=== PATIENT | female | born 1985 | race Caucasian/White ===

== ENCOUNTER 2016-11-15 23:06 | Emergency (ER) | payer OTHER ==
[2016-11-15] MEDS ORDERED: NS 0.9% 1000 ML* 2,000 ML IV ONE (23:39)
[2016-11-15] MEDS ORDERED: Morphine INJ* 4 MG/ML 1 ML CARPUJECT IV ONE (23:42)
[2016-11-15] MEDS ORDERED: Ondansetron INJ* 2 MG/ML VIAL IV ONE (23:42)
[2016-11-15] MEDS ORDERED: Pantoprazole IV* 40 MG IV ONE (23:43)
[2016-11-16 00:06] LABS: Hematocrit 47 % (35-47); Hemoglobin 16.1 g/dl (12.0-16.0); Mean Corpuscular HGB Conc 34 g/dl (31-36); Mean Corpuscular Hemoglobin 32 pg (27-31); Mean Corpuscular Volume 92 fL (80-97); Mean Platelet Volume 10 um3 (7.4-10.4); Red Blood Count 5.06 10^6/ul (4.0-5.4); Red Cell Distribution Width 12 % (10.5-15); White Blood Count 12.9 10^3/ul (3.5-10.8)
[2016-11-16 00:24] LABS: ALT 17 U/L (7-52); AST 19 U/L (13-39); Albumin 3.8 g/dL (3.2-5.2); Alkaline Phosphatase 72 U/L (34-104); Amylase 40 U/L (29-103); Anion Gap 9 mmol/L (2-11); BUN/Creatinine Ratio 34.5 (8-20); Blood Urea Nitrogen 20 mg/dL (6-24); C Reactive Protein 7.67 mg/L (< 5.00); CO2 Carbon Dioxide 27 mmol/L (22-32); Calcium 8.6 mg/dL (8.6-10.3); Chloride 101 mmol/L (101-111); EGFR Non-African American 119.7 (>60); Globulin 3.6 g/dL (2-4); Glucose 122 mg/dL (70-100); Lipase 19 U/L (11.0-82.0); Potassium 3.2 mmol/L (3.5-5.0); Sodium 137 mmol/L (133-145); Total Protein 7.4 g/dL (6.4-8.9)
[2016-11-16 02:18] VITALS: BP 118/73
--- NOTE | 2016-11-16 05:06 | ED ---
antony Mihcaels Timothy, scribed for Ramin Burrows MD on 11/15/16 at 2338 . GI/ HPI - HPI Summary HPI Summary: Angelita Singh is a 31 yo female presenting to [facility] with vomiting multiple times and cramping epigastric abd pain since this afternoon. She states she is thirsty , but cannot tolerate PO fluids. She states she feels numb, and the last time she felt like this she passed out. She also has mild sore throat. She denies fever, chills, gas or abd swelling. she is c/o left ear pain S/P vomiting as well. She states she has not eaten anything today. She states her daughters had abd pain and vomiting a week or so ago. she attempted to self medicated with tylenol, but was unable to tolerate PO intake. Her MHx includes HTN, asthma, preeclampsia, MRSA, and tobacco use. She is on lisinopril for her HTN. - History of Current Complaint Time Seen by Provider: 11/15/16 23:23 Stated Complaint: VOMITING, Hx Obtained From: Patient Timing: Constant Severity: Moderate Current Severity: Moderate Location of Pain: RUQ, Epigastric Pain Characteristics: Cramping Associated Signs and Symptoms: Positive: Nausea, Vomiting, Abdominal Pain Additional Signs & Symptoms: Positive: Other: - numbness Aggravating Factor(s): Liquids - Allergy/Home Medications Allergies/Adverse Reactions: Allergies Allergy/AdvReac Type Severity Reaction Status Date / Time Penicillins Allergy Severe Hives Verified 11/16/16 02:28 Diphenhydramine AdvReac Severe Vomiting Verified 11/16/16 02:28 [From Benadryl] PMH/Surg Hx/FS Hx/Imm Hx Endocrine/Hematology History: Denies: Hx Anticoagulant Therapy, Hx Diabetes, Hx Thyroid Disease Cardiovascular History: Reports: Hx Hypertension Denies: Hx Congestive Heart Failure, Hx Deep Vein Thrombosis, Hx Myocardial Infarction, Hx Pacemaker/ICD Respiratory History: Reports: Hx Asthma Denies: Hx Chronic Obstructive Pulmonary Disease (COPD), Hx Lung Cancer, Hx Pneumonia, Hx Pulmonary Embolism GI History: Denies: Hx Gall Bladder Disease, Hx Gastrointestinal Bleed, Hx Ulcer, Hx Urosepsis History: Denies: Hx Kidney Stones, Hx Renal Disease Sensory History: Denies: Hx Hearing Aid Neurological History: Denies: Hx Dementia, Hx Migraine, Hx Seizures, Hx Transient Ischemic Attacks (TIA) Psychiatric History: Denies: Hx Anxiety, Hx Depression, Hx Panic Disorder, Hx Schizophrenia, Hx Bipolar Disorder - Surgical History Surgery Procedure, Year, and Place: 3 C SECTIONS Infectious Disease History: Reports: 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, bilat 2013 Denies: Hx Hepatitis, Hx Human Immunodeficiency Virus (HIV), Hx Shingles, Hx Tuberculosis, Hx Known/Suspected VRE, Hx Known/Suspected VRSA, History Other Infectious Disease - Family History Known Family History: Positive: Hypertension Negative: Cardiac Disease - Social History Alcohol Use: Occasionally Substance Use Type: Reports: None Smoking Status (MU): Heavy Every Day Tobacco Smoker Type: Cigarettes Amount Used/How Often: 1/2 PPD Length of Time of Smoking/Using Tobacco: 15 YEARS Have You Smoked in the Last Year: Yes Review of Systems Constitutional: Negative Negative: Fever, Chills Eyes: Negative Positive: Sore Throat - mild, Ear Ache Cardiovascular: Negative Respiratory: Negative Positive: Vomiting, Nausea Genitourinary: Negative Musculoskeletal: Negative Skin: Negative Positive: Numbness - diffuse Psychological: Normal All Other Systems Reviewed And Are Negative: Yes Physical Exam - Summary Physical Exam Summary: The patient is well-nourished in mild distress and no acute pain. The skin is warm and slightly diaphoretic and skin color reflects adequate perfusion. There is good turgor. HEENT: The head is normocephalic and atraumatic. The pupils are equal and reactive. The conjunctivae are clear and without drainage. Nares are patent and without drainage. Mouth reveals moist mucous membranes and the throat is without erythema and exudate. The external ears are intact. The ear canals are patent and without drainage. The tympanic membranes are intact, the right is normal, the left is erythematous. Neck is supple with full range of motion and non-tender. There are no carotid bruits. There is no neck vein distension. Respiratory: Chest is non-tender. Lungs are clear to auscultation and breath sounds are symmetrical and equal. Cardiovascular: Heart is regular rate and rhythm. There is no murmur or rub auscultated. There is no peripheral edema and pulses are symmetrical and equal. Abdomen: The abdomen is soft and there is tenderness in the epigastric region and RUQ. There are normal bowel sounds heard in all four quadrants and there is no organomegaly palpated. Musculoskeletal: There is no back pain noted. Extremities are non-tender with full range of motion. There is good capillary refill. There is no peripheral edema or calf tenderness elicited. Neurological: Patient is alert and oriented to person, place and time. The patient has symmetrical motor strength in all four extremities. Cranial nerves are grossly intact. Deep tendon reflexes are symmetrical and equal in all four extremities. Psychiatric: The patient has an appropriate affect and does not exhibit any anxiety or depression. Triage Information Reviewed: Yes Vital Signs On Initial Exam: Initial Vital Signs Temp 98.2 F 11/15/16 23:21 Pulse 117 11/15/16 23:21 Resp 18 11/15/16 23:21 BP 118/76 11/15/16 23:21 Pulse Ox 98 11/15/16 23:21 Vital Signs Reviewed: Yes Diagnostics - Vital Signs Vital Signs Temp Pulse Resp BP Pulse Ox 11/16/16 02:24 98 F 95 16 118/73 11/16/16 02:00 95 118/73 98 11/16/16 01:30 96 99/51 98 11/16/16 01:00 93 98/49 98 11/16/16 00:30 88 105/61 97 11/16/16 00:13 16 11/16/16 00:00 101 97 11/15/16 23:30 107 103/78 97 11/15/16 23:21 98.2 F 117 18 118/76 98 11/15/16 23:18 116 97 11/15/16 23:16 118/76 - Laboratory Lab Results: Lab Results 11/15/16 11/15/16 11/15/16 Range/Units 23:45 23:45 23:45 WBC 12.9 H (3.5-10.8) 10^3/ul RBC 5.06 (4.0-5.4) 10^6/ul Hgb 16.1 H (12.0-16.0) g/dl Hct 47 (35-47) % MCV 92 (80-97) fL MCH 32 H (27-31) pg MCHC 34 (31-36) g/dl RDW 12 (10.5-15) % Plt Count 203 (150-450) 10^3/ul MPV 10 (7.4-10.4) um3 Neut % (Auto) 87.1 H (38-83) % Lymph % (Auto) 5.0 L (25-47) % [place] % (Auto) 6.6 (1-9) % Eos % (Auto) 1.1 (0-6) % Baso % (Auto) 0.2 (0-2) % Absolute Neuts (auto) 11.2 H (1.5-7.7) 10^3/ul Absolute Lymphs (auto) 0.6 L (1.0-4.8) 10^3/ul Absolute Monos (auto) 0.8 (0-0.8) 10^3/ul Absolute Eos (auto) 0.1 (0-0.6) 10^3/ul Absolute Basos (auto) 0 (0-0.2) 10^3/ul Absolute Nucleated RBC 0 10^3/ul Nucleated RBC % 0 Sodium 137 (133-145) mmol/L Potassium 3.2 L (3.5-5.0) mmol/L Chloride 101 (101-111) mmol/L Carbon Dioxide 27 (22-32) mmol/L Anion Gap 9 (2-11) mmol/L BUN 20 (6-24) mg/dL Creatinine 0.58 (0.51-0.95) mg/dL Est GFR ( Amer) 154.0 (>60) Est GFR (Non-Af Amer) 119.7 (>60) BUN/Creatinine Ratio 34.5 H (8-20) Glucose 122 H (70-100) mg/dL Lactic Acid 1.2 (0.5-2.0) mmol/L Calcium 8.6 (8.6-10.3) mg/dL Total Bilirubin 0.50 (0.2-1.0) mg/dL AST 19 (13-39) U/L ALT 17 (7-52) U/L Alkaline Phosphatase 72 (34-104) U/L C-Reactive Protein 7.67 H (< 5.00) mg/L Total Protein 7.4 (6.4-8.9) g/dL Albumin 3.8 (3.2-5.2) g/dL Globulin 3.6 (2-4) g/dL Albumin/Globulin Ratio 1.1 (1-3) Amylase 40 (29-103) U/L Lipase 19 (11.0-82.0) U/L Beta HCG, Quant < 0.60 mIU/mL Result Diagrams: 11/15/16 23:45 11/15/16 23:45 Lab Statement: Any lab studies that have been ordered have been reviewed, and results considered in the medical decision making process. - Ultrasound No standard instances Ultrasound Interpretation: Positive (See Comments) - US Abdomen: Impression: fatty liver Ultrasound Interpretation Completed By: Radiologist - imaging conversion man Re-Evaluation - Re-Evaluation First Eval Re-Evaluation Time: 01:51 Change: Unchanged Comment: Pt has been informed of imaging and lab study results. Pt was re- assessed, and her left TM is erythematous. Pt and significant other present in room are having their questions answered. GIGU Course/Dx - Course Assessment/Plan: Angelita Singh is a 31 yo female presenting to [facility] with vomiting and epigastric pain, as well as diffuse numbness with a Hx of HTN. After clinical examination, review of her imaging studies (see documentation), and lab work, she will be discharged home with gastritis, dehydration, and otitis media of the left ear, as well as appropriate medications and instructions. - Diagnoses Differential Diagnoses - Female: Cholelithiasis, Dehydration, Gastritis, Peptic Ulcer Disease, Vomiting, Other - otitis media Provider Diagnoses: Gastritis, Dehydration, Otitis media of left ear Discharge - Discharge Plan Condition: Stable Disposition: HOME Prescriptions: Azithromycin TAB* [Zithromax TAB (Z-SAEID) 250 mg #6 tabs] 2 tab PO .TODAY, THEN 1 DAILY #1 saeid HYDROcodone/ACETAMIN 5-325 MG* [[place] 5-325 TAB*] 1 tab PO Q6H PRN #20 tab MDD 4 PRN Reason: pain Omeprazole [Prilosec] 20 mg PO DAILY #30 cap Ondansetron ODT TAB* [Zofran 4 MG Odt TAB*] 4 mg PO Q8H PRN #20 tab.odt PRN Reason: nausea Patient Education Materials: Gastritis (ED), Dehydration (ED), Otitis Media (ED ) Referrals: Elizabeth Mckay MD [Primary Care Provider] - 2 Days Additional Instructions: Please follow up with your primary care physician regarding your visit to the emergency department today. Return to the emergency department with any new or recurring symptoms. The documentation as recorded by the antony dukes Timothy accurately reflects the service I personally performed and the decisions made by me, Ramin Burrows MD.
--- NOTE | 2016-11-16 07:51 | RAD ---
INDICATION: ] Right upper quadrant pain COMPARISON: None TECHNIQUE: Longitudinal and transverse scans of the right upper quadrant were obtained. Doppler interrogation of the hepatic and portal venous system was performed. FINDINGS: Liver: There is hepatic steatosis. There are no masses . The liver is normal in size measuring 16.6 cm in cephalocaudal dimension. Vessels: There is normal hepatic and portal venous flow. Bile ducts: There is no evidence of intrahepatic or extrahepatic ductal dilatation. The common duct measures 0.5 cm. Gallbladder: The sonographic appearance of the gallbladder is normal. There is no evidence of cholelithiasis, thickening of the gallbladder wall, or pericholecystic fluid. Pancreas: The visualized pancreas appears normal Right kidney: The right kidney is normal in size and echogenicity. There are no masses or calculi. There is no evidence of hydronephrosis. The right kidney measures 11.4 x 5.3 x 6.0 cm. IVC and aorta: The aorta and superior vena cava appear normal. Fluid: There is no ascites. Other: None. IMPRESSION: HEPATIC STEATOSIS.
== END 2016-11-16 02:24 | disposition home or self-care (01) ==
LOC: ED 23:06
DX: K29.70 Gastritis, unspecified, without bleeding (principal); E86.0 Dehydration; H66.92 Otitis media, unspecified, left ear; R10.11 Right upper quadrant pain; J02.9 Acute pharyngitis, unspecified; R11.2 Nausea with vomiting, unspecified; R10.13 Epigastric pain; F17.210 Nicotine dependence, cigarettes, uncomplicated; H92.09 Otalgia, unspecified ear
CPT/HCPCS: 36415; 76705; 80053; 82150; 83605; 83690; 84702; 85025; 86140; 96374; 96375; 99284; J2270; J2405

== ENCOUNTER 2017-01-24 00:40 | Emergency (ER) | payer OTHER ==
[2017-01-24] MEDS ORDERED: Aspirin Low Dose CHEW TAB* 81 MG PO ONE (01:07)
[2017-01-24 01:33] LABS: Hematocrit 40 % (35-47); Mean Corpuscular HGB Conc 35 g/dl (31-36); Mean Corpuscular Hemoglobin 32 pg (27-31); Mean Corpuscular Volume 92 fL (80-97); Mean Platelet Volume 10 um3 (7.4-10.4); Red Blood Count 4.37 10^6/ul (4.0-5.4); Red Cell Distribution Width 12 % (10.5-15); White Blood Count 7.9 10^3/ul (3.5-10.8)
[2017-01-24 01:46] LABS: Albumin 3.6 g/dL (3.2-5.2); BUN/Creatinine Ratio 20.4 (8-20); Calcium 8.8 mg/dL (8.6-10.3); EGFR African American 187.1 (>60); EGFR Non-African American 145.4 (>60); Globulin 3.3 g/dL (2-4); Magnesium 2.2 mg/dL (1.9-2.7); Potassium 3.4 mmol/L (3.5-5.0); Total Bilirubin 0.4 mg/dL (0.2-1.0); Total Protein 6.9 g/dL (6.4-8.9)
[2017-01-24 01:48] LABS: Troponin I 0.01 ng/mL (<0.04)
--- NOTE | 2017-01-24 01:54 | ED ---
I, Oh,Manny, scribed for Neftali Phan MD on 01/24/17 at 0109 . HPI Chest Pain - HPI Summary HPI Summary: This 31 y/o female presents to ED for intermittent substernal CP that radiates to neck, back, and LUE arm. Pt states that pain started about an hour ago, and it comes every 10 minutes lasting a few seconds. Pt does report episodes of CP that she has been having recently and currently following up with her primary care provider regarding her HTN. Pt states that pain feels different in severity today. PMHx asthma and tubal ligation. Primary care involves Dr. Mckay. - History of Current Complaint Chief Complaint: EDChestPainROMI Time Seen by Provider: 01/24/17 01:02 Hx Obtained From: Patient, Medical Records Timing: Intermittent, Lasting Seconds Pain Intensity: 0 Pain Scale Used: 0-10 Numeric Chest Pain Location: Mid Sternal Chest Pain Radiates: Yes Chest Pain Radiates To:: Back, Arm - LUE, Jaw, Neck Character: Dull/Aching Aggravating Factor(s): Nothing Alleviating Factor(s): Spontaneous Resolution Associated Signs and Symptoms: Positive: Chest Pain. Negative: Fever - Allergy/Home Medications Allergies/Adverse Reactions: Allergies Allergy/AdvReac Type Severity Reaction Status Date / Time Penicillins Allergy Severe Hives Verified 01/24/17 00:45 Diphenhydramine AdvReac Severe Vomiting Verified 01/24/17 00:45 [From Benadryl] PMH/Surg Hx/FS Hx/Imm Hx Endocrine/Hematology History: Denies: Hx Anticoagulant Therapy, Hx Diabetes, Hx Thyroid Disease Cardiovascular History: Reports: Hx Hypertension Denies: Hx Congestive Heart Failure, Hx Deep Vein Thrombosis, Hx Myocardial Infarction, Hx Pacemaker/ICD Respiratory History: Reports: Hx Asthma Denies: Hx Chronic Obstructive Pulmonary Disease (COPD), Hx Lung Cancer, Hx Pneumonia, Hx Pulmonary Embolism GI History: Denies: Hx Gall Bladder Disease, Hx Gastrointestinal Bleed, Hx Ulcer, Hx Urosepsis History: Denies: Hx Kidney Stones, Hx Renal Disease Sensory History: Denies: Hx Hearing Aid Neurological History: Denies: Hx Dementia, Hx Migraine, Hx Seizures, Hx Transient Ischemic Attacks (TIA) Psychiatric History: Denies: Hx Anxiety, Hx Depression, Hx Panic Disorder, Hx Schizophrenia, Hx Bipolar Disorder - Surgical History Surgery Procedure, Year, and Place: 3 C SECTIONS Infectious Disease History: Yes Infectious Disease History: Reports: 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, bilat 2013 Denies: Hx Hepatitis, Hx Human Immunodeficiency Virus (HIV), Hx Shingles, Hx Tuberculosis, Hx Known/Suspected VRE, Hx Known/Suspected VRSA, History Other Infectious Disease, Traveled Outside the [place] in Last 30 Days - Family History Known Family History: Positive: Hypertension Negative: Cardiac Disease - Social History Alcohol Use: None Substance Use Type: Reports: None Smoking Status (MU): Heavy Every Day Tobacco Smoker Type: Cigarettes Amount Used/How Often: 1/2 PPD Length of Time of Smoking/Using Tobacco: 15 YEARS Have You Smoked in the Last Year: Yes Review of Systems Negative: Fever Positive: Chest Pain Negative: Shortness Of Breath All Other Systems Reviewed And Are Negative: Yes Physical Exam Triage Information Reviewed: Yes Vital Signs On Initial Exam: Initial Vitals Temp Pulse Resp BP Pulse Ox 98 F 90 18 145/86 100 01/24/17 00:44 01/24/17 00:44 01/24/17 00:44 01/24/17 00:44 01/24/17 00:44 Vital Signs Reviewed: Yes Appearance: Positive: Well-Appearing, No Pain Distress Skin: Positive: Warm Head/Face: Positive: Normal Head/Face Inspection Eyes: Positive: ALDAIR ENT: Positive: Hearing grossly normal Neck: Positive: Supple, Nontender Respiratory/Lung Sounds: Positive: Breath Sounds Present Cardiovascular: Positive: RRR Abdomen Description: Positive: Nontender, Soft Bowel Sounds: Positive: Present Musculoskeletal: Positive: Strength/ROM Intact Neurological: Positive: Alert, Oriented to Person Place, Time Psychiatric: Positive: Affect/Mood Appropriate - [place] Coma Scale Coma Scale Total: 15 Diagnostics - Vital Signs Vital Signs Temp Pulse Resp BP Pulse Ox 01/24/17 00:44 98 F 90 18 145/86 100 - Laboratory Lab Results: Lab Results 01/24/17 01/24/17 01/24/17 Range/Units 01:20 01:20 01:20 WBC 7.9 (3.5-10.8) 10^3/ul RBC 4.37 (4.0-5.4) 10^6/ul Hgb 14.0 (12.0-16.0) g/dl Hct 40 (35-47) % MCV 92 (80-97) fL MCH 32 H (27-31) pg MCHC 35 (31-36) g/dl RDW 12 (10.5-15) % Plt Count 188 (150-450) 10^3/ul MPV 10 (7.4-10.4) um3 Neut % (Auto) 63.4 (38-83) % Lymph % (Auto) 24.5 L (25-47) % [place] % (Auto) 9.8 H (1-9) % Eos % (Auto) 2.0 (0-6) % Baso % (Auto) 0.3 (0-2) % Absolute Neuts (auto) 5.0 (1.5-7.7) 10^3/ul Absolute Lymphs (auto) 1.9 (1.0-4.8) 10^3/ul Absolute Monos (auto) 0.8 (0-0.8) 10^3/ul Absolute Eos (auto) 0.2 (0-0.6) 10^3/ul Absolute Basos (auto) 0 (0-0.2) 10^3/ul Absolute Nucleated RBC 0.01 10^3/ul Nucleated RBC % 0.1 Sodium 136 (133-145) mmol/L Potassium 3.4 L (3.5-5.0) mmol/L Chloride 104 (101-111) mmol/L Carbon Dioxide 26 (22-32) mmol/L Anion Gap 6 (2-11) mmol/L BUN 10 (6-24) mg/dL Creatinine 0.49 L (0.51-0.95) mg/dL Est GFR ( Amer) 187.1 (>60) Est GFR (Non-Af Amer) 145.4 (>60) BUN/Creatinine Ratio 20.4 H (8-20) Glucose 137 H (70-100) mg/dL Lactic Acid 1.2 (0.5-2.0) mmol/L Calcium 8.8 (8.6-10.3) mg/dL Magnesium 2.2 (1.9-2.7) mg/dL Total Bilirubin 0.40 (0.2-1.0) mg/dL AST 12 L (13-39) U/L ALT 18 (7-52) U/L Alkaline Phosphatase 65 (34-104) U/L Troponin I 0.01 (<0.04) ng/mL Total Protein 6.9 (6.4-8.9) g/dL Albumin 3.6 (3.2-5.2) g/dL Globulin 3.3 (2-4) g/dL Albumin/Globulin Ratio 1.1 (1-3) Result Diagrams: 01/24/17 01:20 01/24/17 01:20 Lab Statement: Any lab studies that have been ordered have been reviewed, and results considered in the medical decision making process. - Radiology CXR Xray Interpretation: No Acute Changes Radiology Interpretation Completed By: ED Physician - EKG 0100 Cardiac Rate: NL - 80 bpm EKG Rhythm: Sinus Rhythm Chest Pain Course/Dx - Diagnoses Provider Diagnoses: Chest pain Discharge - Discharge Plan Condition: Stable Disposition: HOME Patient Education Materials: Chest Pain (ED) Referrals: Elizabeth Mckay MD [Primary Care Provider] - 2 Days The documentation as recorded by the Hermelindo dukes Soohyun accurately reflects the service I personally performed and the decisions made by Emilie purdy David, MD.
[2017-01-24 02:24] VITALS: BP 104/56
--- NOTE | 2017-01-24 07:36 | RAD ---
HISTORY: Chest pain COMPARISONS: October 12, 2016 VIEWS: 2: Frontal dual-energy and lateral views of the chest. FINDINGS: CARDIOMEDIASTINAL SILHOUETTE: The cardiomediastinal silhouette is normal. GHASSAN: The ghassan are normal. PLEURA: The costophrenic angles are sharp. No pleural abnormalities are noted. LUNG PARENCHYMA: The lungs are clear. ABDOMEN: The upper abdomen is clear. There is no subphrenic gas. BONES AND SOFT TISSUES: No bone or soft tissue abnormalities are noted. OTHER: None. IMPRESSION: NO ACTIVE CARDIOPULMONARY DISEASE.
== END 2017-01-24 02:24 | disposition home or self-care (01) ==
LOC: ED 00:40
DX: R07.9 Chest pain, unspecified (principal); F17.210 Nicotine dependence, cigarettes, uncomplicated
CPT/HCPCS: 36415; 71020; 80053; 83605; 83735; 84484; 85025; 93005; 99283; A9270-GY

== ENCOUNTER 2017-03-13 15:11 | Emergency (ER) | payer OTHER ==
[2017-03-13 15:23] VITALS: BP 101/65
--- NOTE | 2017-03-13 16:36 | UC ---
Damian Michaels Benjamin, scribed for Myles Acuna MD on 03/13/17 at 1549 . Palpitation/Dysrhythmia HP - HPI Summary HPI Summary: 31yo female c/o sudden pounding fast HR this morning around 9am with diaphoresis. Fast HR continued throughout the rest of the day. Pt also reports fatigue, and states that she can feel her heart beating in her head. Denies any CP. Pts heart beat has slowed down now compared to her onset. Hx of HTN. Fhx of DM. - History of Current Complaint Chief Complaint: UCChestPain Stated Complaint: RACING HEART,DIZZY,CHILLS Hx Obtained From: Patient Hx Last Menstrual Period: 03/11/17 Onset/Duration: Sudden Onset, Lasting Hours, Resolved Timing: Constant Severity Initially: Mild Severity Currently: None Pain Intensity: 0 Pain Scale Used: 0-10 Numeric Character: Fast, Pounding Aggravating Factor(s): Nothing Alleviating Factor(s): Nothing Associated Signs & Symptoms: Positive: Diaphoresis - Allergy/Home Medications Allergies/Adverse Reactions: Allergies Allergy/AdvReac Type Severity Reaction Status Date / Time Penicillins Allergy Severe Hives Verified 03/13/17 15:24 Diphenhydramine AdvReac Severe Vomiting Verified 03/13/17 15:24 [From Benadryl] PMH/Surg Hx/FS Hx/Imm Hx Previously Healthy: No Cardiovascular History: Hypertension Other History Of: Negative For: HIV, Hepatitis B, Hepatitis C, Anticoagulant Therapy - Surgical History Surgical History: Yes Surgery Procedure, Year, and Place: 3 C SECTIONS - Family History Known Family History: Positive: Hypertension, Diabetes Negative: Cardiac Disease - Social History Occupation: Employed Full-time Lives: With Family Alcohol Use: None Substance Use Type: None Smoking Status (MU): Heavy Every Day Tobacco Smoker Type: Cigarettes Amount Used/How Often: 1/2 PPD Length of Time of Smoking/Using Tobacco: 15 YEARS Have You Smoked in the Last Year: Yes Household Exposure Type: Cigarettes - Immunization History Most Recent Tetanus Shot: unsure Review of Systems Constitutional: Fatigue Skin: Negative Eyes: Negative ENT: Negative Respiratory: Negative Cardiovascular: Palpitations Gastrointestinal: Negative Genitourinary: Negative Motor: Negative Neurovascular: Negative Musculoskeletal: Negative Neurological: Negative Psychological: Negative All Other Systems Reviewed And Are Negative: Yes Physical Exam Triage Information Reviewed: Yes Appearance: Well-Appearing, No Pain Distress, Well-Nourished Vital Signs: Initial Vital Signs Temp 95.9 F 03/13/17 15:15 Pulse 105 03/13/17 15:15 Resp 20 03/13/17 15:15 BP 101/65 03/13/17 15:15 Pulse Ox 95 03/13/17 15:15 Vital Signs Reviewed: Yes Eyes: Positive: Conjunctiva Clear ENT: Positive: Normal ENT inspection Neck: Positive: Supple, Nontender Respiratory: Positive: Chest non-tender, Lungs clear, Normal breath sounds, No respiratory distress Cardiovascular: Positive: Tachycardia, Other: - murmur. Negative: No Murmur Musculoskeletal: Positive: Strength Intact, ROM Intact Neurological: Positive: Alert, Muscle Tone Normal Psychological: Positive: Age Appropriate Behavior Skin: Negative: rashes Diagnostics - EKG Cardiac Rate: Tachycardia - 106 bpm Cardiac Rhythm: Sinus: Normal - sinus tachycardia; inverted T wave, Palpitations Course/Dx - Course Course Of Treatment: Reviewed medications list. DISCUSSED NEED FOR EVALUATION IN EMERGENCY DEPARTMENT FOR FAST HEART RATE. PATIENT AGREED TO GO TO THE EMERGENCY DEPARTMENT, DECLINED AMBULANCE TRANSFER. PLANS TO TAKE POV. LEFT AMA. - Differential Dx/Diagnosis Provider Diagnoses: PALPITATIONS, MURMUR Discharge - Discharge Plan Condition: Stable Disposition: AGAINST MEDICAL ADVICE Referrals: Elizabeth Mckay MD [Primary Care Provider] - The documentation as recorded by the Damian dukes Benjamin accurately reflects the service I personally performed and the decisions made by me, Myles Acuna MD.
== END 2017-03-13 16:00 | disposition left against medical advice (07) ==
LOC: UCEAST 15:11
DX: R00.2 Palpitations (principal); R01.1 Cardiac murmur, unspecified; R61 Generalized hyperhidrosis; I10 Essential (primary) hypertension; Z88.0 Allergy status to penicillin; Z88.8 Allergy status to other drugs, medicaments and biological substances; F17.210 Nicotine dependence, cigarettes, uncomplicated
CPT/HCPCS: 93005; 99212; G0463

== ENCOUNTER 2017-03-21 20:56 | Emergency (ER) | payer OTHER ==
[2017-03-21 21:13] VITALS: BP 110/68
--- NOTE | 2017-03-21 22:00 | UC ---
antony Michaels Timothy, scribed for Ara Dacosta MD on 03/21/17 at 2139 . Respiratory Complaint HPI - HPI Summary HPI Summary: Angelita Singh is a 31 yo female presenting to [facility] with rattling in her lungs and a Hx of tobacco use. She is accompanied by her friend. Pt states she has not been smoking as much because her lungs hurt, causing 7/10 pain. She states when she takes a deep breath, she hears a rattling sound. She has been forcing herself to cough, but is unable to produce sputum - reprots feesl like gets stuck. Tactile fevers, no chills. Pt has MDI but not using. + sick contact with URI sx. She denies sinus pain, ear ache, sore throat, N/V. No travel, leg edema, sob. No cp. Her MHx includes HTN, asthma, tubal ligation, x2, preeclampsia, MRSA, tobacco use. Pt medication list reviewed this visit. - History of Current Complaint Chief Complaint: UCRespiratory Stated Complaint: CONGESTION Time Seen by Provider: 03/21/17 21:35 Hx Obtained From: Patient Hx Last Menstrual Period: 03/06/17 Onset/Duration: Sudden Onset Severity Initially: Moderate Severity Currently: Moderate Pain Intensity: 7 Pain Scale Used: 0-10 Numeric Character: Cough: Nonproductive Alleviating Factors: Nothing Associated Signs And Symptoms: Positive: Wheezing - Allergies/Home Medications Allergies/Adverse Reactions: Allergies Allergy/AdvReac Type Severity Reaction Status Date / Time Penicillins Allergy Severe Hives Verified 03/13/17 15:24 Diphenhydramine AdvReac Severe Vomiting Verified 03/13/17 15:24 [From Benadryl] PMH/Surg Hx/FS Hx/Imm Hx Previously Healthy: Yes Cardiovascular History: Hypertension Respiratory History: Asthma Other History Of: Negative For: HIV, Hepatitis B, Hepatitis C, Anticoagulant Therapy - Surgical History Surgical History: Yes Surgery Procedure, Year, and Place: 3 C SECTIONS - Family History Known Family History: Positive: Hypertension, Diabetes Negative: Cardiac Disease - Social History Occupation: Employed Part-time Lives: With Family Alcohol Use: None Substance Use Type: None Smoking Status (MU): Heavy Every Day Tobacco Smoker Type: Cigarettes Amount Used/How Often: 1/2 PPD Length of Time of Smoking/Using Tobacco: 15 YEARS Have You Smoked in the Last Year: Yes Household Exposure Type: Cigarettes - Immunization History Most Recent Tetanus Shot: unsure Review of Systems Constitutional: Negative Skin: Negative Eyes: Negative ENT: Negative Respiratory: Other - rattling Cardiovascular: Negative Gastrointestinal: Negative Genitourinary: Negative Motor: Negative Neurovascular: Negative Musculoskeletal: Negative Neurological: Negative Psychological: Negative All Other Systems Reviewed And Are Negative: Yes Physical Exam Triage Information Reviewed: Yes Vital Signs: Initial Vital Signs Temp 98.7 F 03/21/17 21:08 Pulse 87 03/21/17 21:08 Resp 18 03/21/17 21:08 BP 110/68 03/21/17 21:08 Pulse Ox 100 03/21/17 21:08 Vital Signs Reviewed: Yes Eye Exam: Normal ENT Exam: Normal Dental Exam: Normal Neck exam: Normal Neck: Positive: Supple, Nontender, No Lymphadenopathy Respiratory Exam: Normal Respiratory: Positive: Chest non-tender, No respiratory distress, No accessory muscle use - PT with scattered wheeze throughout right base with mild rhonci speaking full sentences no accessory muscle use, Wheezing. Negative: Normal breath sounds Cardiovascular Exam: Normal Cardiovascular: Positive: RRR, No Murmur Abdominal Exam: Normal Abdomen Description: Positive: Nontender, No Organomegaly Musculoskeletal Exam: Normal Neurological Exam: Normal Psychological Exam: Normal Skin Exam: Normal UC Diagnostic Evaluation - Laboratory O2 Sat by Pulse Oximetry: 100 - Radiology Xray Interpretation: No Acute Changes - IMPRESSION: NO ACTIVE CARDIOPULMONARY DISEASE. Radiology Interpretation Completed By: Radiologist - CXR Re-Evaluation - Re-Evaluation First Eval Re-Evaluation Time: 22:14 Change: Unchanged Comment: Discussed imaging result with Pt, she is agreeable to be discharged. Respiratory Course/Dx - Course Course Of Treatment: Angelita Singh is a 31 yo female presenting to [facility] with rattling in her lungs and a Hx of tobacco use. Pt medication list reviewed this visit. Pt was counseled as to the risks of tobacco use, and was advised to stop smoking. Her CXR suggests no active cardiopulmonary disease. After clinical examination and review of her imaging study, she will be discharged with appropriate instructions and follow up. mdi. secretion hygeine. Zpack. decrease tobacco. hydrate - Differential Dx/Diagnosis Differential Diagnosis/HQI/PQRI: Other - PNA Provider Diagnoses: bronchitis Discharge - Discharge Plan Condition: Stable Disposition: HOME Prescriptions: Albuterol HFA INHALER* [Ventolin HFA Inhaler*] 1 puff INH Q4H PRN #1 mdi PRN Reason: wheeze Azithromycin TAB* [Zithromax TAB (Z-SAEID) 250 mg #6 tabs] 250 mg PO DAILY #4 tab Patient Education Materials: Acute Bronchitis (ED) Referrals: Elizabeth Mckay MD [Primary Care Provider] - 2 Days Additional Instructions: - Take antibiotics daily as prescribed until gone -- After you have been on antibiotics for 2 days - change your toothbrush and your pillowcase. These infections are spread by secretions - do NOT share eating or drinking utensils - clean items you share with other people such as cell phones, computer mouse, TV remote, computer tablets, etc - Use inhaler - 2 puffs every 4 hours today, then every 4 hours as needed - Okay to use over the counter medication for cough -work to decrease cigarette smoking -contact your doctor to schedule a follow-up appointment. Contact your doctor or return with questions or concerns The documentation as recorded by the antony dukes Timothy accurately reflects the service I personally performed and the decisions made by , Ara Dacosta MD.
--- NOTE | 2017-03-21 22:02 | RAD ---
HISTORY: Cough, smoker, wheezing COMPARISONS: January 24, 2017 VIEWS: 4: Frontal dual-energy and lateral views of the chest. FINDINGS: CARDIOMEDIASTINAL SILHOUETTE: The cardiomediastinal silhouette is normal. GHASSAN: The ghassan are normal. PLEURA: The costophrenic angles are sharp. No pleural abnormalities are noted. LUNG PARENCHYMA: The lungs are clear. ABDOMEN: The upper abdomen is clear. There is no subphrenic gas. BONES AND SOFT TISSUES: No bone or soft tissue abnormalities are noted. OTHER: None. IMPRESSION: NO ACTIVE CARDIOPULMONARY DISEASE.
[2017-03-21] MEDS ORDERED: Azithromycin TAB* 250 MG PO ONE (22:14)
== END 2017-03-21 22:25 | disposition home or self-care (01) ==
LOC: UCEAST 20:56
DX: J40 Bronchitis, not specified as acute or chronic (principal); I10 Essential (primary) hypertension; J45.909 Unspecified asthma, uncomplicated; Z86.14 Personal history of Methicillin resistant Staphylococcus aureus infection; Z72.0 Tobacco use
CPT/HCPCS: 71020; 99212; A9270-GY; G0463